=== PATIENT | male | born 1965 | race African-American/Black ===

== ENCOUNTER 2017-02-24 10:31 | Inpatient (IN) | payer OTHER ==
[2017-02-24 11:34] VITALS: BMI 29.5
--- NOTE | 2017-02-24 13:09 | HP ---
Admission ROS [facility] - [facility] Chief Complaint: alfred here for rehab from alcohol Allergies/Adverse Reactions: Allergies Allergy/AdvReac Type Severity Reaction Status Date / Time No Known Allergies Allergy Verified 02/24/17 13:03 History of Present Illness: this 51 years old male with alcohol dependence,seeking rehab,,last detox [facility] from 02/19/17 to 02/23/17 hypertension depression no significant perios of sobriety Exam Limitations: No Limitations - Ebola screening Have you traveled outside of the country in the last 21 days: No Have you had contact with anyone from an Ebola affected area: No Have you been sick,other than usual withdrawal symptoms: No - Review of Systems Constitutional: No Symptoms Reported EENT: reports: No Symptoms Reported Respiratory: reports: No Symptoms reported Cardiac: reports: No Symptoms Reported GI: reports: No Symptoms Reported : reports: No Symptoms Reported Musculoskeletal: reports: Neck Pain Integumentary: reports: No Symptoms Reported Neuro: reports: No Symptoms reported Endocrine: reports: No Symptoms Reported Hematology: reports: No Symptoms Reported Psychiatric: reports: Mood/Affect Appropiate, Orientated x3, Depressed Patient History - Patient Medical History Hx Anemia: No Hx Asthma: No Hx Chronic Obstructive Pulmonary Disease (COPD): No Hx Cancer: No Hx Cardiac Disorders: No Hx Congestive Heart Failure: No Hx Hypertension: Yes (on med) Hx Hypercholesterolemia: No Hx Pacemaker: No HX Cerebrovascular Accident: No Hx Seizures: No Hx Diabetes: No Hx Gastrointestinal Disorders: No Hx Liver Disease: No Hx Genitourinary Disorders: No Hx Sexually Transmitted Disorders: No Hx Renal Disease (ESRD): No Hx Thyroid Disease: No Hx Human Immunodeficiency Virus (HIV): No (last 2016 negative) Hx Hepatitis C: No Hx Depression: Yes (non compliant ) Hx Suicide Attempt: No Hx Schizophrenia: No Other Medical History: no suicidal,no homicidal - Patient Surgical History Past Surgical History: No Hx Neurologic Surgery: No Hx Cataract Extraction: No Hx Cardiac Surgery: No Hx Lung Surgery: No Hx Breast Surgery: No Hx Breast Biopsy: No Hx Abdominal Surgery: Yes Hx Appendectomy: No Hx Cholecystectomy: No Hx Genitourinary Surgery: No Hx Section: No Hx Orthopedic Surgery: Yes (right tight abd had a colonostomy bg for 2 years prior to closure ) Anesthesia Reaction: No - PPD History Previous Implant?: Yes Date: 03/01/14 PPD to be Administered?: Yes - Smoking Cessation Smoking history: Former smoker Have you smoked in the past 12 months: Yes Aproximately how many cigarettes per day: 3 Cigars Per Day: 0 Hx Chewing Tobacco Use: No Initiated information on smoking cessation: Yes 'Breaking Loose' booklet given: 02/24/17 - Substance & Tx. History Hx Alcohol Use: Yes Substance Use Type: Alcohol Hx Substance Use Treatment: Yes ([facility] 02/19/17 to 02/23/17) - Substances Abused Alcohol Route: Oral Frequency: Daily Amount used: 4 of 24 oz of liquor Age of first use: 15 Date of Last Use: 02/19/17 Family Disease History - Family Disease History Family Disease History: CA: Grandparent, Other: Father (alcohol,), Mother (alcohol,) Admission Physical Exam [facility] - Vital Signs Vital Signs: Vital Signs - 24 hr 02/24/17 11:32 Temperature 97.3 F L Pulse Rate 106 H Respiratory 18 Rate Blood Pressure 137/87 - Physical General Appearance: Yes: Within Normal Limits HEENTM: Yes: Within Normal Limits, Normal ENT Inspection, Pharynx Normal Respiratory: Yes: Lungs Clear, Normal Breath Sounds, No Respiratory Distress Neck: Yes: Within Normal Limits Breast: Yes: Within Normal Limits Cardiology: Yes: Within Normal Limits, Regular Rhythm, Regular Rate, S1, S2 Abdominal: Yes: Within Normal Limits, Normal Bowel Sounds, Non Tender, Flat, Soft, Surgical Scar Genitourinary: Yes: Within Normal Limits Back: Yes: Within Normal Limits Musculoskeletal: Yes: Within Normal Limits Extremities: Yes: Within Normal Limits Neurological: Yes: balancer scale II-XII NML intact, Fully Oriented, Alert, Motor Strength 5/5 Integumentary: Yes: Within Normal Limits Lymphatic: Yes: Within Normal Limits - Diagnostic (1) Alcohol dependence Current Visit: No Status: Acute (2) Hypertension Current Visit: Yes Status: Acute (3) Depression Current Visit: Yes Status: Acute Cleared for Admission [facility] - Detox or Rehab Claeared for Rehab Admission: Yes [facility] Breath Alcohol Content Breath Alcohol Content: 0 Urine Drug Screen - Results Drug Screen Negative: No Urine Drug Screen Results: BZO-Benzodiazepines
[2017-02-24] MEDS ORDERED: guaiFENesin/D-METHORPHAN HB 10 ML UNIT-DOSE CUPS PO PRN (13:23)
[2017-02-24] MEDS ORDERED: MENTHOL/PHENOL 1 EACH UD MM PRN (13:23)
[2017-02-24] MEDS ORDERED: LOPERAMIDE HCL 2 MG CAPSULE PO PRN (13:23)
[2017-02-24] MEDS ORDERED: P-EPHED 60MG/TRIPROLIDI 2.5MG TABLET PO PRN (13:23)
[2017-02-24] MEDS ORDERED: MAGNESIUM CITRATE 300 ML BOTTLE PO PRN (13:23)
[2017-02-24] MEDS: IBUPROFEN 400 MG TABLET (FP) PO PRN (14:12)
[2017-02-24] MEDS ORDERED: NICOTINE POLACRILEX 2 MG GUM BUC PRN (15:49)
[2017-02-24 18:02] LABS: URINE APPEARANCE TURBID; URINE BILIRUBIN NEGATIVE (NEGATIVE); URINE BLOOD NEGATIVE (NEGATIVE); URINE COLOR GREEN; URINE GLUCOSE (UA) NEGATIVE (NEGATIVE); URINE KETONE NEGATIVE (NEGATIVE); URINE LEUK ESTERASE NEGATIVE (NEGATIVE); URINE NITRITE NEGATIVE (NEGATIVE); URINE UROBILINOGEN NEGATIVE E.U./dl (0.2-1.0)
[2017-02-24 18:04] LABS: MEAN PLT VOLUME 7.9 fl (7.5-11.1)
[2017-02-24 18:06] LABS: MCH 28.5 pg (25.7-33.7); MCHC 32.7 g/dl (32.0-35.9); MEAN CELL VOLUME 86.9 fl (80-96); PLATELET COUNT 380 K/MM3 (134-434); WHITE BLOOD COUNT 7.4 K/mm3 (4.0-10.0)
[2017-02-24 18:15] LABS: ALBUMIN 4.2 g/dl (3.4-5.0); ANION GAP 9 (8-16); CALCIUM 9.7 mg/dL (8.5-10.1); CO2 29 mmol/L (21-32); CREATININE 1.2 mg/dL (0.7-1.3); GLUCOSE,RANDOM 86 mg/dL (74-106); SGOT/AST 62 U/L (15-37); SGPT/ALT 67 U/L (12-78)
[2017-02-24 18:18] LABS: ALK PHOS 101 U/L (45-117); BILIRUBIN,TOTAL 0.5 mg/dL (0.2-1.0); TOT PROT 8.3 g/dl (6.4-8.2)
[2017-02-24 18:48] LABS: URINE PROTEIN 1+ (NEGATIVE)
[2017-02-24 19:01] LABS: URINE MUCUS RARE; URINE RBC 3 /hpf (0-3); URINE WBC 71 /hpf (3-5); YEAST MANY
[2017-02-24] MEDS: ACETAMINOPHEN 325 MG TABLET (FP) PO PRN (19:16)
[2017-02-24] MEDS: NICOTINE 14 MG/24 HOURS TOPICAL PATCH TD SCH (20:47)
[2017-02-24] MEDS: SERTRALINE HCL 50 MG TABLET (FP) PO SCH (21:48)
[2017-02-24] MEDS: MIRTAZAPINE 15 MG TABLET (FP) PO SCH (21:49)
[2017-02-24] MEDS: THIAMINE HCL 100 MG TABLET (FP) PO SCH (21:49)
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
[2017-02-25] MEDS: LISINOPRIL 20 MG TABLET (FP) PO SCH (10:31)
[2017-02-25] MEDS: PRENATAL VITAMINS W/ FOLIC ACID TABLET (FP) PO SCH (10:31)
[2017-02-25] MEDS: SERTRALINE HCL 50 MG TABLET (FP) PO SCH (10:31)
[2017-02-25] MEDS: NICOTINE 14 MG/24 HOURS TOPICAL PATCH TD SCH (10:33)
[2017-02-25] MEDS ORDERED: SERTRALINE HCL 50 MG TABLET (FP) PO ONE (10:59)
[2017-02-25] MEDS: hydrOXYzine PAMOATE 50 MG CAPSULE (FP) PO PRN ×2 (11:01→22:14)
--- NOTE | 2017-02-25 11:05 | EKG ---
Test Reason : Blood Pressure : / mmHG Vent. Rate : 089 BPM Atrial Rate : 089 BPM P-R Int : 186 ms QRS Dur : 092 ms QT Int : 384 ms P-R-T Axes : 055 000 006 degrees QTc Int : 467 ms NORMAL SINUS RHYTHM POSSIBLE LEFT ATRIAL ENLARGEMENT LEFT VENTRICULAR HYPERTROPHY ABNORMAL ECG NO PREVIOUS ECGS AVAILABLE Confirmed by SUZI CHAVEZ MD ([id number]) on 02/25/2017 11:05:04 AM Referred By: Confirmed By:SUZI CHAVEZ MD
[2017-02-25] MEDS: THIAMINE HCL 100 MG TABLET (FP) PO SCH (21:27)
[2017-02-25] MEDS: IBUPROFEN 400 MG TABLET (FP) PO PRN (21:27)
[2017-02-25] MEDS: MIRTAZAPINE 15 MG TABLET (FP) PO SCH (21:27)
[2017-02-26] MEDS: PRENATAL VITAMINS W/ FOLIC ACID TABLET (FP) PO SCH (10:20)
[2017-02-26] MEDS: SERTRALINE HCL 50 MG TABLET (FP) PO SCH (10:20)
[2017-02-26] MEDS: hydrOXYzine PAMOATE 50 MG CAPSULE (FP) PO PRN ×2 (10:21→21:52)
[2017-02-26] MEDS: LISINOPRIL 20 MG TABLET (FP) PO SCH (10:21)
[2017-02-26] MEDS: NICOTINE 14 MG/24 HOURS TOPICAL PATCH TD SCH (10:23)
[2017-02-26] MEDS: CYCLOBENZAPRINE HCL 10 MG TABLET (FP) PO PRN (18:45)
[2017-02-26] MEDS: IBUPROFEN 600 MG TABLET (FP) PO PRN (18:46)
[2017-02-26] MEDS: MIRTAZAPINE 15 MG TABLET (FP) PO SCH (21:49)
[2017-02-26] MEDS: THIAMINE HCL 100 MG TABLET (FP) PO SCH (21:50)
[2017-02-27] MEDS: NICOTINE 14 MG/24 HOURS TOPICAL PATCH TD SCH (10:21)
[2017-02-27] MEDS: PRENATAL VITAMINS W/ FOLIC ACID TABLET (FP) PO SCH (10:21)
[2017-02-27] MEDS: LISINOPRIL 20 MG TABLET (FP) PO SCH (10:21)
[2017-02-27] MEDS: SERTRALINE HCL 50 MG TABLET (FP) PO SCH (10:21)
[2017-02-27] MEDS: CYCLOBENZAPRINE HCL 10 MG TABLET (FP) PO PRN ×2 (10:22→21:46)
[2017-02-27] MEDS: IBUPROFEN 600 MG TABLET (FP) PO PRN ×2 (10:22→21:45)
[2017-02-27] MEDS: THIAMINE HCL 100 MG TABLET (FP) PO SCH (21:46)
[2017-02-27] MEDS: MIRTAZAPINE 15 MG TABLET (FP) PO SCH (21:46)
[2017-02-28] MEDS: LISINOPRIL 20 MG TABLET (FP) PO SCH (10:14)
[2017-02-28] MEDS: PRENATAL VITAMINS W/ FOLIC ACID TABLET (FP) PO SCH (10:14)
[2017-02-28] MEDS: SERTRALINE HCL 50 MG TABLET (FP) PO SCH (10:14)
[2017-02-28] MEDS: NICOTINE 14 MG/24 HOURS TOPICAL PATCH TD SCH (10:14)
[2017-02-28] MEDS: IBUPROFEN 600 MG TABLET (FP) PO PRN ×2 (10:16→21:35)
[2017-02-28] MEDS: CYCLOBENZAPRINE HCL 10 MG TABLET (FP) PO PRN ×2 (10:16→21:35)
[2017-02-28] MEDS: MIRTAZAPINE 15 MG TABLET (FP) PO SCH (21:35)
[2017-02-28] MEDS: hydrOXYzine PAMOATE 50 MG CAPSULE (FP) PO PRN (21:35)
[2017-02-28] MEDS: THIAMINE HCL 100 MG TABLET (FP) PO SCH (21:35)
[2017-03-01] MEDS: NICOTINE 14 MG/24 HOURS TOPICAL PATCH TD SCH (10:27)
[2017-03-01] MEDS: PRENATAL VITAMINS W/ FOLIC ACID TABLET (FP) PO SCH (10:27)
[2017-03-01] MEDS: SERTRALINE HCL 50 MG TABLET (FP) PO SCH (10:28)
[2017-03-01] MEDS: LISINOPRIL 20 MG TABLET (FP) PO SCH (10:28)
[2017-03-01] MEDS: IBUPROFEN 600 MG TABLET (FP) PO PRN ×2 (10:29→21:49)
[2017-03-01] MEDS: CYCLOBENZAPRINE HCL 10 MG TABLET (FP) PO PRN (10:30)
[2017-03-01] MEDS: hydrOXYzine PAMOATE 50 MG CAPSULE (FP) PO PRN ×2 (16:11→21:50)
[2017-03-01] MEDS: MAG HYDROX/AL HYDROX/SIMETH 30 ML UNIT-DOSE CUP PO PRN (16:11)
[2017-03-01] MEDS: THIAMINE HCL 100 MG TABLET (FP) PO SCH (21:47)
[2017-03-01] MEDS: MIRTAZAPINE 15 MG TABLET (FP) PO SCH (21:47)
[2017-03-02] MEDS: PRENATAL VITAMINS W/ FOLIC ACID TABLET (FP) PO SCH (10:37)
[2017-03-02] MEDS: SERTRALINE HCL 50 MG TABLET (FP) PO SCH (10:37)
[2017-03-02] MEDS: hydrOXYzine PAMOATE 50 MG CAPSULE (FP) PO PRN ×2 (10:37→20:10)
[2017-03-02] MEDS: IBUPROFEN 600 MG TABLET (FP) PO PRN ×2 (10:38→21:33)
[2017-03-02] MEDS: NICOTINE 14 MG/24 HOURS TOPICAL PATCH TD SCH (10:39)
[2017-03-02] MEDS: LISINOPRIL 20 MG TABLET (FP) PO SCH (10:40)
[2017-03-02] MEDS: MAG HYDROX/AL HYDROX/SIMETH 30 ML UNIT-DOSE CUP PO PRN (20:11)
[2017-03-02] MEDS: MIRTAZAPINE 15 MG TABLET (FP) PO SCH (21:32)
[2017-03-02] MEDS: CYCLOBENZAPRINE HCL 10 MG TABLET (FP) PO PRN (21:32)
[2017-03-02] MEDS: THIAMINE HCL 100 MG TABLET (FP) PO SCH (21:34)
--- NOTE | 2017-03-03 09:04 | PN ---
[facility] Progress Note (SOAP) Subjective: neck pain x 1 week worse with left sided movements Objective: 03/03/17 08:59 Vital Signs Temperature 97.9 F 03/03/17 06:50 Pulse Rate 83 03/03/17 06:50 Respiratory Rate 18 03/03/17 06:50 Blood Pressure 136/87 03/03/17 06:50 O2 Sat by Pulse Oximetry (%) Laboratory Tests 02/24/17 02/24/17 02/24/17 13:00 13:00 13:00 WBC 7.4 D RBC 4.91 Hgb 14.0 Hct 42.7 MCV 86.9 MCHC 32.7 RDW 15.0 Plt Count 380 D MPV 7.9 Sodium 136 Potassium 4.3 Chloride 98 Carbon Dioxide 29 Anion Gap 9 BUN 16 D Creatinine 1.2 Creat Clearance w eGFR > 60 Random Glucose 86 Calcium 9.7 Total Bilirubin 0.5 AST 62 H D ALT 67 D Alkaline Phosphatase 101 Total Protein 8.3 H Albumin 4.2 Urine Color Urine Appearance Urine pH Ur Specific Hart Urine Protein Urine Glucose (UA) Urine Ketones Urine Blood Urine Nitrite Urine Bilirubin Urine Urobilinogen Ur Leukocyte Esterase Urine RBC Urine WBC Urine Mucus Urine Yeast RPR Titer Nonreactive 02/24/17 15:00 WBC RBC Hgb Hct MCV MCHC RDW Plt Count MPV Sodium Potassium Chloride Carbon Dioxide Anion Gap BUN Creatinine Creat Clearance w eGFR Random Glucose Calcium Total Bilirubin AST ALT Alkaline Phosphatase Total Protein Albumin Urine Color Green Urine Appearance Turbid Urine pH 5.0 Ur Specific Hart 1.025 Urine Protein 1+ H Urine Glucose (UA) Negative Urine Ketones Negative Urine Blood Negative Urine Nitrite Negative Urine Bilirubin Negative Urine Urobilinogen Negative Ur Leukocyte Esterase Negative Urine RBC 3 Urine WBC 71 Urine Mucus Rare Urine Yeast Many RPR Titer pt aox3 in nad ambulatng neck soft +dolor on left sided movemnts Assessment: 03/03/17 09:02 neck pain -likely musculosketetal Plan: motri 600mg tid flexeril 10mg tid x ray c-spine analgesic balm
[2017-03-03] MEDS: METHYL SALICYLATE/MENTHOL OINT 30 GM TUBE TP SCH ×2 (10:21→21:43)
[2017-03-03] MEDS: LISINOPRIL 20 MG TABLET (FP) PO SCH (10:21)
[2017-03-03] MEDS: PRENATAL VITAMINS W/ FOLIC ACID TABLET (FP) PO SCH (10:21)
[2017-03-03] MEDS: SERTRALINE HCL 50 MG TABLET (FP) PO SCH (10:22)
[2017-03-03] MEDS: NICOTINE 14 MG/24 HOURS TOPICAL PATCH TD SCH (10:22)
[2017-03-03] MEDS: IBUPROFEN 600 MG TABLET (FP) PO PRN ×2 (10:23→21:44)
[2017-03-03] MEDS: CYCLOBENZAPRINE HCL 10 MG TABLET (FP) PO PRN ×2 (10:23→21:45)
[2017-03-03] MEDS: MAG HYDROX/AL HYDROX/SIMETH 30 ML UNIT-DOSE CUP PO PRN (20:25)
[2017-03-03] MEDS: hydrOXYzine PAMOATE 50 MG CAPSULE (FP) PO PRN (20:25)
[2017-03-03] MEDS: THIAMINE HCL 100 MG TABLET (FP) PO SCH (21:43)
[2017-03-03] MEDS: MIRTAZAPINE 15 MG TABLET (FP) PO SCH (21:43)
[2017-03-04] MEDS ORDERED: COLLOIDAL OATMEAL 1 BAR EACH TP PRN (09:45)
[2017-03-04] MEDS: LISINOPRIL 20 MG TABLET (FP) PO SCH (09:47)
[2017-03-04] MEDS: PRENATAL VITAMINS W/ FOLIC ACID TABLET (FP) PO SCH (09:47)
[2017-03-04] MEDS: SERTRALINE HCL 50 MG TABLET (FP) PO SCH (09:47)
[2017-03-04] MEDS: CYCLOBENZAPRINE HCL 10 MG TABLET (FP) PO PRN ×2 (09:48→21:32)
[2017-03-04] MEDS: IBUPROFEN 600 MG TABLET (FP) PO PRN ×2 (09:48→21:32)
[2017-03-04 09:53] LABS: URINE APPEARANCE CLEAR; URINE BILIRUBIN NEGATIVE (NEGATIVE); URINE BLOOD NEGATIVE (NEGATIVE); URINE COLOR LTYELLOW; URINE GLUCOSE (UA) NEGATIVE (NEGATIVE); URINE KETONE NEGATIVE (NEGATIVE); URINE LEUK ESTERASE NEGATIVE (NEGATIVE); URINE NITRITE NEGATIVE (NEGATIVE); URINE PROTEIN NEGATIVE (NEGATIVE); URINE UROBILINOGEN NEGATIVE E.U./dl (0.2-1.0)
[2017-03-04] MEDS ORDERED: BACITRACIN 15 GM TUBE TOPICAL OINTMENT TP SCH (10:00)
[2017-03-04] MEDS: METHYL SALICYLATE/MENTHOL OINT 30 GM TUBE TP SCH ×3 (10:05→22:32)
[2017-03-04] MEDS: NICOTINE 14 MG/24 HOURS TOPICAL PATCH TD SCH (10:05)
[2017-03-04] MEDS: MAG HYDROX/AL HYDROX/SIMETH 30 ML UNIT-DOSE CUP PO PRN (18:16)
[2017-03-04] MEDS: MIRTAZAPINE 15 MG TABLET (FP) PO SCH (21:32)
[2017-03-04] MEDS: THIAMINE HCL 100 MG TABLET (FP) PO SCH (21:32)
[2017-03-04] MEDS: hydrOXYzine PAMOATE 50 MG CAPSULE (FP) PO PRN (21:32)
[2017-03-05] MEDS: SERTRALINE HCL 50 MG TABLET (FP) PO SCH (10:05)
[2017-03-05] MEDS: LISINOPRIL 20 MG TABLET (FP) PO SCH (10:05)
[2017-03-05] MEDS: hydrOXYzine PAMOATE 50 MG CAPSULE (FP) PO PRN ×2 (10:06→21:07)
[2017-03-05] MEDS: IBUPROFEN 600 MG TABLET (FP) PO PRN ×2 (10:06→21:07)
[2017-03-05] MEDS: NICOTINE 14 MG/24 HOURS TOPICAL PATCH TD SCH (10:08)
[2017-03-05] MEDS: METHYL SALICYLATE/MENTHOL OINT 30 GM TUBE TP SCH ×2 (10:08→21:05)
[2017-03-05] MEDS: PRENATAL VITAMINS W/ FOLIC ACID TABLET (FP) PO SCH (10:09)
[2017-03-05] MEDS: MAG HYDROX/AL HYDROX/SIMETH 30 ML UNIT-DOSE CUP PO PRN (15:59)
[2017-03-05] MEDS: MIRTAZAPINE 15 MG TABLET (FP) PO SCH (21:06)
[2017-03-05] MEDS: THIAMINE HCL 100 MG TABLET (FP) PO SCH (21:06)
[2017-03-05] MEDS: CYCLOBENZAPRINE HCL 10 MG TABLET (FP) PO PRN (21:09)
[2017-03-06] MEDS: NICOTINE 14 MG/24 HOURS TOPICAL PATCH TD SCH (10:21)
[2017-03-06] MEDS: PRENATAL VITAMINS W/ FOLIC ACID TABLET (FP) PO SCH (10:21)
[2017-03-06] MEDS: METHYL SALICYLATE/MENTHOL OINT 30 GM TUBE TP SCH ×2 (10:21→22:56)
[2017-03-06] MEDS: SERTRALINE HCL 50 MG TABLET (FP) PO SCH (10:21)
[2017-03-06] MEDS: LISINOPRIL 20 MG TABLET (FP) PO SCH (10:21)
[2017-03-06] MEDS: IBUPROFEN 600 MG TABLET (FP) PO PRN ×2 (10:23→21:39)
[2017-03-06] MEDS: CYCLOBENZAPRINE HCL 10 MG TABLET (FP) PO PRN ×2 (10:23→21:39)
[2017-03-06] MEDS: THIAMINE HCL 100 MG TABLET (FP) PO SCH (21:38)
[2017-03-06] MEDS: hydrOXYzine PAMOATE 50 MG CAPSULE (FP) PO PRN (21:38)
[2017-03-06] MEDS: MIRTAZAPINE 15 MG TABLET (FP) PO SCH (21:39)
[2017-03-07] MEDS: SERTRALINE HCL 50 MG TABLET (FP) PO SCH (10:06)
[2017-03-07] MEDS: LISINOPRIL 20 MG TABLET (FP) PO SCH (10:06)
[2017-03-07] MEDS: PRENATAL VITAMINS W/ FOLIC ACID TABLET (FP) PO SCH (10:06)
[2017-03-07] MEDS: hydrOXYzine PAMOATE 50 MG CAPSULE (FP) PO PRN (10:07)
[2017-03-07] MEDS: IBUPROFEN 600 MG TABLET (FP) PO PRN ×2 (10:07→21:16)
[2017-03-07] MEDS: METHYL SALICYLATE/MENTHOL OINT 30 GM TUBE TP SCH ×2 (10:08→21:14)
[2017-03-07] MEDS: NICOTINE 14 MG/24 HOURS TOPICAL PATCH TD SCH (10:08)
[2017-03-07] MEDS: MIRTAZAPINE 15 MG TABLET (FP) PO SCH (21:15)
[2017-03-07] MEDS: THIAMINE HCL 100 MG TABLET (FP) PO SCH (21:15)
[2017-03-08] MEDS: PRENATAL VITAMINS W/ FOLIC ACID TABLET (FP) PO SCH (10:12)
[2017-03-08] MEDS: SERTRALINE HCL 50 MG TABLET (FP) PO SCH (10:12)
[2017-03-08] MEDS: LISINOPRIL 20 MG TABLET (FP) PO SCH (10:12)
[2017-03-08] MEDS: NICOTINE 14 MG/24 HOURS TOPICAL PATCH TD SCH (10:13)
[2017-03-08] MEDS: CYCLOBENZAPRINE HCL 10 MG TABLET (FP) PO PRN ×2 (10:13→21:30)
[2017-03-08] MEDS: METHYL SALICYLATE/MENTHOL OINT 30 GM TUBE TP SCH ×2 (10:13→21:28)
[2017-03-08] MEDS: IBUPROFEN 600 MG TABLET (FP) PO PRN ×2 (10:14→21:30)
[2017-03-08] MEDS: MAG HYDROX/AL HYDROX/SIMETH 30 ML UNIT-DOSE CUP PO PRN (19:13)
[2017-03-08] MEDS: THIAMINE HCL 100 MG TABLET (FP) PO SCH (21:28)
[2017-03-08] MEDS: MIRTAZAPINE 15 MG TABLET (FP) PO SCH (21:28)
[2017-03-08] MEDS: hydrOXYzine PAMOATE 50 MG CAPSULE (FP) PO PRN (21:30)
--- NOTE | 2017-03-09 09:05 | PN ---
S Progress Note Note: patient has history of gerd on omeprazol at home,will give protonix 40 mgs po daily
[2017-03-09] MEDS: METHYL SALICYLATE/MENTHOL OINT 30 GM TUBE TP SCH ×2 (09:51→21:32)
[2017-03-09] MEDS: LISINOPRIL 20 MG TABLET (FP) PO SCH (09:52)
[2017-03-09] MEDS: SERTRALINE HCL 50 MG TABLET (FP) PO SCH (09:52)
[2017-03-09] MEDS: PANTOPRAZOLE 40 MG TABLET (FP) PO SCH (09:52)
[2017-03-09] MEDS: PRENATAL VITAMINS W/ FOLIC ACID TABLET (FP) PO SCH (09:52)
[2017-03-09] MEDS: hydrOXYzine PAMOATE 50 MG CAPSULE (FP) PO PRN ×2 (09:54→21:31)
[2017-03-09] MEDS: IBUPROFEN 600 MG TABLET (FP) PO PRN ×2 (09:54→21:30)
[2017-03-09] MEDS: NICOTINE 14 MG/24 HOURS TOPICAL PATCH TD SCH (09:55)
[2017-03-09] MEDS: THIAMINE HCL 100 MG TABLET (FP) PO SCH (21:30)
[2017-03-09] MEDS: MIRTAZAPINE 15 MG TABLET (FP) PO SCH (21:30)
[2017-03-09] MEDS: CYCLOBENZAPRINE HCL 10 MG TABLET (FP) PO PRN (21:30)
[2017-03-10] MEDS: NICOTINE 14 MG/24 HOURS TOPICAL PATCH TD SCH (10:11)
[2017-03-10] MEDS: PRENATAL VITAMINS W/ FOLIC ACID TABLET (FP) PO SCH (10:11)
[2017-03-10] MEDS: METHYL SALICYLATE/MENTHOL OINT 30 GM TUBE TP SCH ×2 (10:11→22:56)
[2017-03-10] MEDS: PANTOPRAZOLE 40 MG TABLET (FP) PO SCH (10:12)
[2017-03-10] MEDS: LISINOPRIL 20 MG TABLET (FP) PO SCH (10:12)
[2017-03-10] MEDS: SERTRALINE HCL 50 MG TABLET (FP) PO SCH (10:12)
[2017-03-10] MEDS: hydrOXYzine PAMOATE 50 MG CAPSULE (FP) PO PRN ×2 (10:13→21:33)
[2017-03-10] MEDS: IBUPROFEN 600 MG TABLET (FP) PO PRN ×2 (10:13→21:33)
[2017-03-10] MEDS: MIRTAZAPINE 15 MG TABLET (FP) PO SCH (21:31)
[2017-03-10] MEDS: THIAMINE HCL 100 MG TABLET (FP) PO SCH (21:31)
[2017-03-10] MEDS: CYCLOBENZAPRINE HCL 10 MG TABLET (FP) PO PRN (21:33)
[2017-03-11] MEDS: SERTRALINE HCL 50 MG TABLET (FP) PO SCH (09:52)
[2017-03-11] MEDS: PANTOPRAZOLE 40 MG TABLET (FP) PO SCH (09:53)
[2017-03-11] MEDS: PRENATAL VITAMINS W/ FOLIC ACID TABLET (FP) PO SCH (09:53)
[2017-03-11] MEDS: hydrOXYzine PAMOATE 50 MG CAPSULE (FP) PO PRN ×2 (09:54→21:21)
[2017-03-11] MEDS: IBUPROFEN 600 MG TABLET (FP) PO PRN ×2 (09:54→21:21)
[2017-03-11] MEDS: CYCLOBENZAPRINE HCL 10 MG TABLET (FP) PO PRN ×2 (09:54→21:21)
[2017-03-11] MEDS: METHYL SALICYLATE/MENTHOL OINT 30 GM TUBE TP SCH ×2 (09:56→22:19)
[2017-03-11] MEDS: LISINOPRIL 20 MG TABLET (FP) PO SCH (09:57)
[2017-03-11] MEDS: NICOTINE 14 MG/24 HOURS TOPICAL PATCH TD SCH (09:57)
[2017-03-11] MEDS: THIAMINE HCL 100 MG TABLET (FP) PO SCH (21:20)
[2017-03-11] MEDS: MIRTAZAPINE 15 MG TABLET (FP) PO SCH (21:20)
[2017-03-12] MEDS: PRENATAL VITAMINS W/ FOLIC ACID TABLET (FP) PO SCH (09:56)
[2017-03-12] MEDS: SERTRALINE HCL 50 MG TABLET (FP) PO SCH (09:56)
[2017-03-12] MEDS: LISINOPRIL 20 MG TABLET (FP) PO SCH (09:56)
[2017-03-12] MEDS: PANTOPRAZOLE 40 MG TABLET (FP) PO SCH (09:57)
[2017-03-12] MEDS: CYCLOBENZAPRINE HCL 10 MG TABLET (FP) PO PRN ×2 (09:58→21:17)
[2017-03-12] MEDS: hydrOXYzine PAMOATE 50 MG CAPSULE (FP) PO PRN ×2 (09:58→21:18)
[2017-03-12] MEDS: IBUPROFEN 600 MG TABLET (FP) PO PRN ×2 (09:58→21:17)
[2017-03-12] MEDS: METHYL SALICYLATE/MENTHOL OINT 30 GM TUBE TP SCH ×2 (10:03→21:16)
[2017-03-12] MEDS: NICOTINE 14 MG/24 HOURS TOPICAL PATCH TD SCH (10:04)
[2017-03-12] MEDS: MIRTAZAPINE 15 MG TABLET (FP) PO SCH (21:16)
[2017-03-12] MEDS: THIAMINE HCL 100 MG TABLET (FP) PO SCH (21:16)
[2017-03-13] MEDS: SERTRALINE HCL 50 MG TABLET (FP) PO SCH (10:01)
[2017-03-13] MEDS: NICOTINE 14 MG/24 HOURS TOPICAL PATCH TD SCH (10:01)
[2017-03-13] MEDS: LISINOPRIL 20 MG TABLET (FP) PO SCH (10:01)
[2017-03-13] MEDS: METHYL SALICYLATE/MENTHOL OINT 30 GM TUBE TP SCH ×2 (10:01→21:12)
[2017-03-13] MEDS: PRENATAL VITAMINS W/ FOLIC ACID TABLET (FP) PO SCH (10:01)
[2017-03-13] MEDS: CYCLOBENZAPRINE HCL 10 MG TABLET (FP) PO PRN ×2 (10:04→21:13)
[2017-03-13] MEDS: PANTOPRAZOLE 40 MG TABLET (FP) PO SCH (10:04)
[2017-03-13] MEDS: IBUPROFEN 600 MG TABLET (FP) PO PRN ×2 (10:04→21:12)
[2017-03-13] MEDS: MIRTAZAPINE 15 MG TABLET (FP) PO SCH (21:13)
[2017-03-13] MEDS: THIAMINE HCL 100 MG TABLET (FP) PO SCH (21:13)
[2017-03-13] MEDS: hydrOXYzine PAMOATE 50 MG CAPSULE (FP) PO PRN (21:13)
[2017-03-14] MEDS: PRENATAL VITAMINS W/ FOLIC ACID TABLET (FP) PO SCH (09:16)
[2017-03-14] MEDS: SERTRALINE HCL 50 MG TABLET (FP) PO SCH (09:16)
[2017-03-14] MEDS: PANTOPRAZOLE 40 MG TABLET (FP) PO SCH (09:17)
[2017-03-14] MEDS: CYCLOBENZAPRINE HCL 10 MG TABLET (FP) PO PRN ×2 (09:18→21:28)
[2017-03-14] MEDS: hydrOXYzine PAMOATE 50 MG CAPSULE (FP) PO PRN (09:18)
[2017-03-14] MEDS: LISINOPRIL 20 MG TABLET (FP) PO SCH (09:21)
[2017-03-14] MEDS: METHYL SALICYLATE/MENTHOL OINT 30 GM TUBE TP SCH ×2 (09:22→21:24)
[2017-03-14] MEDS: NICOTINE 14 MG/24 HOURS TOPICAL PATCH TD SCH (09:22)
[2017-03-14] MEDS: MIRTAZAPINE 15 MG TABLET (FP) PO SCH (21:24)
[2017-03-14] MEDS: THIAMINE HCL 100 MG TABLET (FP) PO SCH (21:24)
[2017-03-14] MEDS: diphenhydrAMINE HCL 50 MG CAPSULE PO PRN (21:25)
[2017-03-14] MEDS: IBUPROFEN 600 MG TABLET (FP) PO PRN (21:26)
[2017-03-15] MEDS: PRENATAL VITAMINS W/ FOLIC ACID TABLET (FP) PO SCH (09:51)
[2017-03-15] MEDS: SERTRALINE HCL 50 MG TABLET (FP) PO SCH (09:51)
[2017-03-15] MEDS: PANTOPRAZOLE 40 MG TABLET (FP) PO SCH (09:52)
[2017-03-15] MEDS: LISINOPRIL 20 MG TABLET (FP) PO SCH (09:52)
[2017-03-15] MEDS: METHYL SALICYLATE/MENTHOL OINT 30 GM TUBE TP SCH ×2 (09:53→21:08)
[2017-03-15] MEDS: ACETAMINOPHEN 325 MG TABLET (FP) PO PRN (09:54)
[2017-03-15] MEDS: CYCLOBENZAPRINE HCL 10 MG TABLET (FP) PO PRN ×2 (09:54→21:07)
[2017-03-15] MEDS: hydrOXYzine PAMOATE 50 MG CAPSULE (FP) PO PRN (09:54)
[2017-03-15] MEDS: NICOTINE 14 MG/24 HOURS TOPICAL PATCH TD SCH (09:55)
[2017-03-15] MEDS: diphenhydrAMINE HCL 50 MG CAPSULE PO PRN (21:06)
[2017-03-15] MEDS: THIAMINE HCL 100 MG TABLET (FP) PO SCH (21:06)
[2017-03-15] MEDS: IBUPROFEN 600 MG TABLET (FP) PO PRN (21:07)
[2017-03-15] MEDS: MIRTAZAPINE 15 MG TABLET (FP) PO SCH (21:08)
[2017-03-16] MEDS: LISINOPRIL 20 MG TABLET (FP) PO SCH (09:57)
[2017-03-16] MEDS: PRENATAL VITAMINS W/ FOLIC ACID TABLET (FP) PO SCH (09:57)
[2017-03-16] MEDS: SERTRALINE HCL 50 MG TABLET (FP) PO SCH (09:57)
[2017-03-16] MEDS: PANTOPRAZOLE 40 MG TABLET (FP) PO SCH (09:58)
[2017-03-16] MEDS: IBUPROFEN 600 MG TABLET (FP) PO PRN ×2 (09:59→21:20)
[2017-03-16] MEDS: CYCLOBENZAPRINE HCL 10 MG TABLET (FP) PO PRN ×2 (09:59→21:21)
[2017-03-16] MEDS: NICOTINE 14 MG/24 HOURS TOPICAL PATCH TD SCH (10:00)
[2017-03-16] MEDS: METHYL SALICYLATE/MENTHOL OINT 30 GM TUBE TP SCH ×2 (10:04→21:18)
[2017-03-16] MEDS: MIRTAZAPINE 15 MG TABLET (FP) PO SCH (21:18)
[2017-03-16] MEDS: THIAMINE HCL 100 MG TABLET (FP) PO SCH (21:21)
[2017-03-17] MEDS: PRENATAL VITAMINS W/ FOLIC ACID TABLET (FP) PO SCH (09:40)
[2017-03-17] MEDS: LISINOPRIL 20 MG TABLET (FP) PO SCH (09:41)
[2017-03-17] MEDS: IBUPROFEN 600 MG TABLET (FP) PO PRN ×2 (09:41→21:11)
[2017-03-17] MEDS: CYCLOBENZAPRINE HCL 10 MG TABLET (FP) PO PRN ×2 (09:41→21:11)
[2017-03-17] MEDS: SERTRALINE HCL 50 MG TABLET (FP) PO SCH (09:41)
[2017-03-17] MEDS: PANTOPRAZOLE 40 MG TABLET (FP) PO SCH (09:41)
[2017-03-17] MEDS: hydrOXYzine PAMOATE 50 MG CAPSULE (FP) PO PRN ×2 (09:50→21:11)
[2017-03-17] MEDS: METHYL SALICYLATE/MENTHOL OINT 30 GM TUBE TP SCH ×2 (09:53→21:10)
[2017-03-17] MEDS: NICOTINE 14 MG/24 HOURS TOPICAL PATCH TD SCH (09:55)
[2017-03-17] MEDS: MIRTAZAPINE 15 MG TABLET (FP) PO SCH (21:10)
[2017-03-17] MEDS: THIAMINE HCL 100 MG TABLET (FP) PO SCH (21:10)
[2017-03-18] MEDS: PANTOPRAZOLE 40 MG TABLET (FP) PO SCH (09:46)
[2017-03-18] MEDS: SERTRALINE HCL 50 MG TABLET (FP) PO SCH (09:46)
[2017-03-18] MEDS: PRENATAL VITAMINS W/ FOLIC ACID TABLET (FP) PO SCH (09:46)
[2017-03-18] MEDS: CYCLOBENZAPRINE HCL 10 MG TABLET (FP) PO PRN ×2 (09:46→21:10)
[2017-03-18] MEDS: IBUPROFEN 600 MG TABLET (FP) PO PRN ×2 (09:46→21:10)
[2017-03-18] MEDS: LISINOPRIL 20 MG TABLET (FP) PO SCH (09:46)
[2017-03-18] MEDS: NICOTINE 14 MG/24 HOURS TOPICAL PATCH TD SCH (09:49)
[2017-03-18] MEDS: METHYL SALICYLATE/MENTHOL OINT 30 GM TUBE TP SCH ×2 (09:49→21:09)
[2017-03-18] MEDS: THIAMINE HCL 100 MG TABLET (FP) PO SCH (21:09)
[2017-03-18] MEDS: MIRTAZAPINE 15 MG TABLET (FP) PO SCH (21:09)
[2017-03-18] MEDS: hydrOXYzine PAMOATE 50 MG CAPSULE (FP) PO PRN (21:10)
[2017-03-19] MEDS: METHYL SALICYLATE/MENTHOL OINT 30 GM TUBE TP SCH ×2 (09:26→21:14)
[2017-03-19] MEDS: PRENATAL VITAMINS W/ FOLIC ACID TABLET (FP) PO SCH (09:27)
[2017-03-19] MEDS: SERTRALINE HCL 50 MG TABLET (FP) PO SCH (09:27)
[2017-03-19] MEDS: LISINOPRIL 20 MG TABLET (FP) PO SCH (09:27)
[2017-03-19] MEDS: NICOTINE 14 MG/24 HOURS TOPICAL PATCH TD SCH (09:27)
[2017-03-19] MEDS: PANTOPRAZOLE 40 MG TABLET (FP) PO SCH (09:27)
[2017-03-19] MEDS: hydrOXYzine PAMOATE 50 MG CAPSULE (FP) PO PRN (09:28)
[2017-03-19] MEDS: MIRTAZAPINE 15 MG TABLET (FP) PO SCH (21:11)
[2017-03-19] MEDS: CYCLOBENZAPRINE HCL 10 MG TABLET (FP) PO PRN (21:12)
[2017-03-19] MEDS: IBUPROFEN 600 MG TABLET (FP) PO PRN (21:12)
[2017-03-19] MEDS: diphenhydrAMINE HCL 50 MG CAPSULE PO PRN (21:12)
[2017-03-19] MEDS: THIAMINE HCL 100 MG TABLET (FP) PO SCH (21:13)
[2017-03-20] MEDS: LISINOPRIL 20 MG TABLET (FP) PO SCH (09:41)
[2017-03-20] MEDS: IBUPROFEN 600 MG TABLET (FP) PO PRN ×2 (09:41→21:27)
[2017-03-20] MEDS: CYCLOBENZAPRINE HCL 10 MG TABLET (FP) PO PRN ×2 (09:41→21:23)
[2017-03-20] MEDS: hydrOXYzine PAMOATE 50 MG CAPSULE (FP) PO PRN (09:43)
[2017-03-20] MEDS: NICOTINE 14 MG/24 HOURS TOPICAL PATCH TD SCH (09:44)
[2017-03-20] MEDS: PRENATAL VITAMINS W/ FOLIC ACID TABLET (FP) PO SCH (09:44)
[2017-03-20] MEDS: METHYL SALICYLATE/MENTHOL OINT 30 GM TUBE TP SCH ×2 (09:44→21:29)
[2017-03-20] MEDS: SERTRALINE HCL 50 MG TABLET (FP) PO SCH ×2 (09:45→21:23)
[2017-03-20] MEDS: PANTOPRAZOLE 40 MG TABLET (FP) PO SCH (09:45)
[2017-03-20] MEDS: THIAMINE HCL 100 MG TABLET (FP) PO SCH (21:23)
[2017-03-20] MEDS: MIRTAZAPINE 15 MG TABLET (FP) PO SCH (21:23)
[2017-03-20] MEDS: TOLNAFTATE 1% CREAM 15 GM TUBE TP SCH (21:30)
[2017-03-21] MEDS: LISINOPRIL 20 MG TABLET (FP) PO SCH (09:35)
[2017-03-21] MEDS: PRENATAL VITAMINS W/ FOLIC ACID TABLET (FP) PO SCH (09:35)
[2017-03-21] MEDS: PANTOPRAZOLE 40 MG TABLET (FP) PO SCH (09:35)
[2017-03-21] MEDS: TOLNAFTATE 1% CREAM 15 GM TUBE TP SCH ×2 (09:36→21:08)
[2017-03-21] MEDS: METHYL SALICYLATE/MENTHOL OINT 30 GM TUBE TP SCH ×2 (09:36→21:07)
[2017-03-21] MEDS: NICOTINE 14 MG/24 HOURS TOPICAL PATCH TD SCH (09:36)
[2017-03-21] MEDS: ACETAMINOPHEN 325 MG TABLET (FP) PO PRN (09:37)
[2017-03-21] MEDS: hydrOXYzine PAMOATE 50 MG CAPSULE (FP) PO PRN ×2 (09:37→19:58)
[2017-03-21] MEDS: MIRTAZAPINE 15 MG TABLET (FP) PO SCH (21:07)
[2017-03-21] MEDS: THIAMINE HCL 100 MG TABLET (FP) PO SCH (21:08)
[2017-03-21] MEDS: CYCLOBENZAPRINE HCL 10 MG TABLET (FP) PO PRN (21:08)
[2017-03-21] MEDS: SERTRALINE HCL 50 MG TABLET (FP) PO SCH (21:09)
[2017-03-22] MEDS: METHYL SALICYLATE/MENTHOL OINT 30 GM TUBE TP SCH ×2 (09:55→21:24)
[2017-03-22] MEDS: LISINOPRIL 20 MG TABLET (FP) PO SCH (09:55)
[2017-03-22] MEDS: PANTOPRAZOLE 40 MG TABLET (FP) PO SCH (09:55)
[2017-03-22] MEDS: NICOTINE 14 MG/24 HOURS TOPICAL PATCH TD SCH (09:55)
[2017-03-22] MEDS: PRENATAL VITAMINS W/ FOLIC ACID TABLET (FP) PO SCH (09:55)
[2017-03-22] MEDS: TOLNAFTATE 1% CREAM 15 GM TUBE TP SCH ×2 (09:56→21:25)
[2017-03-22] MEDS: CYCLOBENZAPRINE HCL 10 MG TABLET (FP) PO PRN ×2 (09:57→21:22)
[2017-03-22] MEDS: MAGNESIUM HYDROX 2400MG/30ML ORAL SUSPENSION 30 ML CUP PO PRN (09:57)
[2017-03-22] MEDS: hydrOXYzine PAMOATE 50 MG CAPSULE (FP) PO PRN (09:57)
[2017-03-22] MEDS: IBUPROFEN 600 MG TABLET (FP) PO PRN (09:58)
[2017-03-22] MEDS: MIRTAZAPINE 15 MG TABLET (FP) PO SCH (21:20)
[2017-03-22] MEDS: THIAMINE HCL 100 MG TABLET (FP) PO SCH (21:20)
[2017-03-22] MEDS: SERTRALINE HCL 50 MG TABLET (FP) PO SCH (21:20)
[2017-03-22] MEDS: ACETAMINOPHEN 325 MG TABLET (FP) PO PRN (21:22)
[2017-03-23] MEDS: hydrOXYzine PAMOATE 50 MG CAPSULE (FP) PO PRN ×2 (06:37→20:39)
[2017-03-23] MEDS: MAGNESIUM HYDROX 2400MG/30ML ORAL SUSPENSION 30 ML CUP PO PRN (06:37)
--- NOTE | 2017-03-23 07:41 | PN ---
Psychiatric Progress Note Vital Signs: Vital Signs Period Temp Pulse Resp BP Sys/Wood Pulse Ox Last 24 Hr 97.8 F 92-109 18-20 125-131/76-79 Date of Session: 03/23/17 Chief Complaint:: Discharge Note HPI: Patient addressing Alcohol Dependence comorbid with Nicotine Dependence and Anxiety Disorder ROS: HTN, GERD were medically addressed Current Medications: Active Medications Generic Name Dose Route Start Last Admin Trade Name Freq PRN Reason Stop Dose Admin Acetaminophen 650 mg 02/24/17 13:23 03/22/17 21:22 Tylenol - PO 650 mg Q4H PRN Administration PAIN Al Hydroxide/Mg Hydroxide 30 ml 02/24/17 13:23 03/08/17 19:13 Mylanta Oral Suspension - PO 30 ml Q6H PRN Administration DYSPEPSIA Colloidal Oatmeal 1 applic 03/04/17 09:45 03/04/17 10:05 Aveeno Soap - TP 1 bar DAILY PRN Administration HYGEINE Cyclobenzaprine HCl 10 mg 02/26/17 15:52 03/22/17 21:22 Flexeril - PO 10 mg TID PRN Administration MUSCLE SPASMS Diphenhydramine HCl 50 mg 02/24/17 13:23 03/19/17 21:12 Benadryl - PO 50 mg HSMR1 PRN Administration INSOMNIA Eucalyptus/Menthol/Phenol/Sorbitol 1 each 02/24/17 13:23 Cepastat Lozenge - MM Q4H PRN SORE THROAT Guaifenesin 10 ml 02/24/17 13:23 Robitussin Dm - PO Q6H PRN COUGH Hydroxyzine Pamoate 50 mg 02/24/17 13:23 03/23/17 06:37 Vistaril - PO 50 mg Q4H PRN Administration AGITATION Ibuprofen 600 mg 02/26/17 15:51 03/22/17 09:58 Motrin - PO 600 mg Q6H PRN Administration PAIN Lisinopril 20 mg 02/25/17 10:00 03/22/17 09:55 Prinivil PO 20 mg DAILY JOSE F Administration Loperamide HCl 4 mg 02/24/17 13:23 Imodium - PO Q6H PRN DIARRHEA Magnesium Citrate 300 ml 02/24/17 13:23 Citroma - PO Q48H PRN CONSTIPATION Magnesium Hydroxide 30 ml 02/24/17 13:23 03/23/17 06:37 Milk Of Magnesia - PO 30 ml DAILY PRN Administration CONSTIPATION Methyl Salicylate 1 applic 03/03/17 10:00 03/22/17 21:24 Jimenez-Huffman - TP Not Given BID JOSE F Mirtazapine 15 mg 02/24/17 22:00 03/22/17 21:20 Remeron - PO 15 mg HS JOSE F Administration Nicotine 14 mg 02/24/17 16:00 03/22/17 09:55 Nicoderm Patch - TD Not Given DAILY JOSE F Nicotine Polacrilex 2 mg 02/24/17 15:49 02/25/17 10:33 Nicorette Gum - BUC 2 mg Q2H PRN Administration NICOTINE REPLACEMENT RX Pantoprazole Sodium 40 mg 03/09/17 10:00 03/22/17 09:55 Protonix - PO 40 mg DAILY JOSE F Administration Multivit/Folic Acid/Iron 1 tab 02/25/17 10:00 03/22/17 09:55 Vitamins (Sjr) - PO 1 tab DAILY JOSE F Administration Pseudoephedrine/Triprolidine 1 combo 02/24/17 13:23 Actifed - PO TID PRN NASAL CONGESTION Sertraline HCl 200 mg 03/20/17 22:00 03/22/17 21:20 Zoloft - PO 200 mg HS JOSE F Administration Thiamine HCl 100 mg 02/24/17 22:00 03/22/17 21:20 Vitamin B1 - PO 100 mg HS JOSE F Administration Tolnaftate 1 applic 03/20/17 22:00 03/22/17 21:25 Tinactin 1% Cream - TP Not Given BID JOSE F Current Side Effect: No Lab tests ordered: Yes Lab tests reviewed: Yes Provider note:: Patient will complete this program on 03/24/17. He has met his treatment goals and will continue to address his issues in outpatient treatment at [facility] at [address] [place] [address]. Told gag writer from his participation in this program, he has learned that he has to attend meetings and stay busy in order to have a shot at abstinence. He responded well to Zoloft 200 mg po HS and Remeron 15 mg po HS. Scripts for 30 days supply of medications will be electronically transmitted to [facility] at [address] [place] [address]. He is stable for discharge on 03/24/17 Total face to face time:: 35 Mental Status Exam - Mental Status Exam Alert and Oriented to: Time, Place, Person Cognitive Function: Fair Patient Appearance: Well Groomed Mood: Hopeful, Euthymic Affect: Appropriate Patient Behavior: Cooperative Speech Pattern: Clear Voice Loudness: Normal Thought Process: Intact, Goal Oriented Thought Disorder: Not Present Hallucinations: Denies Suicidal Ideation: Denies Homicidal Ideation: Denies Insight/Judgement: Fair Sleep: Fair Appetite: Fair Muscle strength/Tone: Normal Gait/Station: Normal Psychiatric Treatment Plan - Problem List (1) Alcohol dependence Current Visit: No (2) Nicotine dependence Current Visit: Yes (3) Anxiety disorder Current Visit: Yes (4) JESSICA (generalized anxiety disorder) Current Visit: Yes (5) Hypertension Current Visit: Yes (6) GERD (gastroesophageal reflux disease) Current Visit: Yes Initial treatment plan: Patient will be discharged tomorrow and referred to [facility] for outpatient treatment
[2017-03-23] MEDS: LISINOPRIL 20 MG TABLET (FP) PO SCH (09:43)
[2017-03-23] MEDS: IBUPROFEN 600 MG TABLET (FP) PO PRN (09:43)
[2017-03-23] MEDS: CYCLOBENZAPRINE HCL 10 MG TABLET (FP) PO PRN ×2 (09:43→21:22)
[2017-03-23] MEDS: PANTOPRAZOLE 40 MG TABLET (FP) PO SCH (09:43)
[2017-03-23] MEDS: PRENATAL VITAMINS W/ FOLIC ACID TABLET (FP) PO SCH (09:43)
[2017-03-23] MEDS: NICOTINE 14 MG/24 HOURS TOPICAL PATCH TD SCH (09:45)
[2017-03-23] MEDS: TOLNAFTATE 1% CREAM 15 GM TUBE TP SCH ×2 (09:45→21:24)
[2017-03-23] MEDS: METHYL SALICYLATE/MENTHOL OINT 30 GM TUBE TP SCH ×2 (09:45→21:24)
[2017-03-23] MEDS: THIAMINE HCL 100 MG TABLET (FP) PO SCH (21:22)
[2017-03-23] MEDS: SERTRALINE HCL 50 MG TABLET (FP) PO SCH (21:22)
[2017-03-23] MEDS: MIRTAZAPINE 15 MG TABLET (FP) PO SCH (21:22)
[2017-03-23] MEDS: diphenhydrAMINE HCL 50 MG CAPSULE PO PRN (21:22)
[2017-03-24 06:51] VITALS: BP 131/79; PULSE 94; TEMP 98.6
[2017-03-24] MEDS: PANTOPRAZOLE 40 MG TABLET (FP) PO SCH (09:31)
[2017-03-24] MEDS: PRENATAL VITAMINS W/ FOLIC ACID TABLET (FP) PO SCH (09:31)
[2017-03-24] MEDS: LISINOPRIL 20 MG TABLET (FP) PO SCH (09:31)
[2017-03-24] MEDS: METHYL SALICYLATE/MENTHOL OINT 30 GM TUBE TP SCH (09:32)
[2017-03-24] MEDS: NICOTINE 14 MG/24 HOURS TOPICAL PATCH TD SCH (09:32)
[2017-03-24] MEDS: TOLNAFTATE 1% CREAM 15 GM TUBE TP SCH (09:58)
== END 2017-03-24 10:05 | disposition home or self-care (01) | DRG 895 ==
LOC: YASAS 10:31 → Y3W 13:16
PROVIDERS: ADMIT Psychiatry & Neurology Psychiatry; ATTEND Psychiatry & Neurology Psychiatry
PROC: HZ42ZZZ Group Counseling for Substance Abuse Treatment, Cognitive-Behavioral (ICD-10-PCS; principal; 2017-03-24)
DX: F10.20 Alcohol dependence, uncomplicated (principal); F17.210 Nicotine dependence, cigarettes, uncomplicated; F41.1 Generalized anxiety disorder; F32.9 Major depressive disorder, single episode, unspecified; I10 Essential (primary) hypertension; K21.9 Gastro-esophageal reflux disease without esophagitis
CPT/HCPCS: 36415; 72050-TC; 80053; 81003; 81015; 85027; 86593; 93005; 93010

== ENCOUNTER 2018-04-26 16:13 | Inpatient (IN) | payer OTHER ==
[2018-04-26 18:42] VITALS: BMI 28.2
--- NOTE | 2018-04-26 21:52 | HP ---
CIWA Score - CIWA Score Nausea/Vomitin-Mild Nausea/No Vomiting Muscle Tremors: 4-Moderate,w/Arms Extend Anxiety: 4-Mod. Anxious/Guarded Agitation: 4-Moderately Restless Paroxysmal Sweats: 3 Orientation: 0-Oriented Tacttile Disturbances: 3-Moderate Itch/Numb/Burn Auditory Disturbances: 0-None Visual Disturbances: 0-None Headache: 3-Moderate CIWA-Ar Total Score: 22 Admission ROS [facility] - HPI Chief Complaint: c/o withdrawal sx's. seeking detox from alcohol Allergies/Adverse Reactions: Allergies Allergy/AdvReac Type Severity Reaction Status Date / Time No Known Allergies Allergy Verified 02/24/17 13:03 History of Present Illness: 52 Y.O. MALE WITH ALCOHOLISM HERE FOR DETOX. CLIENT IS KNOWN TO THIS PROGRAM. LAST HERE 1 YEAR AGO. HE IS REFERRED TO [facility] BY HIS [facility]. DENIES ANY SIGNIFICANT PERIOD OF CLEAN TIME, SEIZURES, AVH, SI/HI. UTOX + BZO. CLIENT REPORTS TAKING A PILL FROM A FRIEND. Exam Limitations: No Limitations - Ebola screening Have you traveled outside of the country in the last 21 days: No (N) Have you had contact with anyone from an Ebola affected area: No Have you been sick,other than usual withdrawal symptoms: No Do you have a fever: No - Review of Systems Constitutional: Chills, Loss of Appetite, Malaise, Night Sweats, Changes in sleep EENT: reports: No Symptoms Reported Respiratory: reports: No Symptoms reported Cardiac: reports: No Symptoms Reported GI: reports: Diarrhea, Nausea, Poor Appetite, Vomiting, Other (GERD) : reports: No Symptoms Reported Musculoskeletal: reports: Joint Pain Integumentary: reports: Rash (TO BOTH ARMS CHRONIC) Neuro: reports: No Symptoms reported Endocrine: reports: No Symptoms Reported Hematology: reports: No Symptoms Reported Psychiatric: reports: Anxious, Depressed Other Systems: Reviewed and Negative Patient History - Patient Medical History Hx Anemia: No Hx Asthma: No Hx Chronic Obstructive Pulmonary Disease (COPD): No Hx Cancer: No Hx Cardiac Disorders: No Hx Congestive Heart Failure: No Hx Hypertension: Yes (NON COMPLIANT WWITH MED. DOES NOT RECALL) Hx Hypercholesterolemia: No Hx Pacemaker: No HX Cerebrovascular Accident: No Hx Seizures: No Hx Diabetes: No Hx Gastrointestinal Disorders: Yes (GERD/PROTONIX) Hx Liver Disease: No Hx Genitourinary Disorders: No Hx Sexually Transmitted Disorders: No Hx Renal Disease (ESRD): No Hx Thyroid Disease: No Hx Human Immunodeficiency Virus (HIV): No Hx Hepatitis C: No Hx Depression: Yes Hx Suicide Attempt: No Hx Schizophrenia: No Other Medical History: ANXIETY/ PTSD - Patient Surgical History Past Surgical History: No Hx Neurologic Surgery: No Hx Cataract Extraction: No Hx Cardiac Surgery: No Hx Lung Surgery: No Hx Breast Surgery: No Hx Breast Biopsy: No Hx Abdominal Surgery: Yes Hx Appendectomy: No Hx Cholecystectomy: No Hx Genitourinary Surgery: No Hx Section: No Hx Orthopedic Surgery: Yes (right tight abd had a colonostomy bg for 2 years prior to closure ) Anesthesia Reaction: No - PPD History Previous Implant?: Yes Documented Results: Negative w/o proof Implanted On Prior [facility] Admission?: Yes Date: 02/26/17 Results: 0 MM PPD to be Administered?: Yes - Smoking Cessation Smoking history: Former smoker Have you smoked in the past 12 months: Yes Aproximately how many cigarettes per day: 3 Cigars Per Day: 0 Hx Chewing Tobacco Use: No Initiated information on smoking cessation: Yes 'Breaking Loose' booklet given: 04/26/18 - Substance & Tx. History Hx Alcohol Use: Yes Hx Substance Use: Yes Substance Use Type: Alcohol Hx Substance Use Treatment: Yes ([facility]) - Substances Abused Alcohol Route: Oral Frequency: Daily Amount used: Vodka 3 pints, Beer 2 x 24oz Age of first use: 13 Date of Last Use: 04/26/18 Family Disease History - Family Disease History Family Disease History: CA: Grandparent, Other: Father (alcohol,), Mother (alcohol,) Admission Physical Exam [facility] - Vital Signs Vital Signs: Vital Signs - 24 hr 04/26/18 18:39 Temperature 97.6 F Pulse Rate 103 H Respiratory 20 Rate Blood Pressure 159/98 - Physical General Appearance: Yes: Appropriately Dressed, Mild Distress, Alcohol on Breath , Obese, Tremorous (FELT), Anxious HEENTM: Yes: EOMI, Normocephalic, Normal Voice, DELANO, Pharynx Normal Respiratory: Yes: Chest Non-Tender, Lungs Clear, Normal Breath Sounds, No Respiratory Distress, No Accessory Muscle Use Neck: Yes: No masses,lesions,Nodules, Supple, Trachea in good position Breast: Yes: Breast Exam Deferred Cardiology: Yes: Regular Rhythm, S1, S2, Tachycardia Abdominal: Yes: Non Tender, Soft, Protuberent Genitourinary: Yes: Other (NO C/O) Back: Yes: Normal Inspection Musculoskeletal: Yes: full range of Motion, Gait Steady Extremities: Yes: Normal Range of Motion, Non-Tender, Tremors (FELT) Neurological: Yes: Fully Oriented, Alert, Motor Strength 5/5, Depressed Affect Integumentary: Yes: Dry, Warm Lymphatic: Yes: Within Normal Limits - Diagnostic (1) Alcohol dependence with uncomplicated withdrawal Current Visit: Yes Status: Acute (2) Depression Current Visit: Yes Status: Suspected (3) GERD (gastroesophageal reflux disease) Current Visit: Yes Status: Chronic Qualifiers: Esophagitis presence: without esophagitis Qualified Code(s): K21.9 - Gastro -esophageal reflux disease without esophagitis (4) Hypertension Current Visit: Yes Status: Chronic Qualifiers: Hypertension type: essential hypertension Qualified Code(s): I10 - Essential (primary) hypertension (5) Nicotine dependence Current Visit: Yes Status: Chronic Qualifiers: Nicotine product type: cigarettes Substance use status: uncomplicated Qualified Code(s): F17.210 - Nicotine dependence, cigarettes, uncomplicated Cleared for Admission [facility] - Detox or Rehab [facility] Level of Care: Medically Managed Detox Regimen/Protocol: Librium Claeared for Rehab Admission: No [facility] Breath Alcohol Content Breath Alcohol Content: 0.140 Urine Drug Screen - Results Drug Screen Negative: No Urine Drug Screen Results: BZO-Benzodiazepines
[2018-04-26] MEDS ORDERED: ACETAMINOPHEN 325 MG TABLET (FP) PO PRN (21:55)
[2018-04-26] MEDS ORDERED: MAGNESIUM CITRATE 300 ML BOTTLE PO PRN (21:55)
[2018-04-26] MEDS ORDERED: chlordiazePOXIDE HCL 25 MG CAPSULE PO PRN (21:55)
[2018-04-26] MEDS ORDERED: MENTHOL/PHENOL 1 EACH UD MM PRN (21:55)
[2018-04-26] MEDS ORDERED: P-EPHED 60MG/TRIPROLIDI 2.5MG TABLET PO PRN (21:55)
[2018-04-26] MEDS ORDERED: IBUPROFEN 400 MG TABLET (FP) PO PRN (21:55)
[2018-04-26] MEDS ORDERED: MAG HYDROX/AL HYDROX/SIMETH 30 ML UNIT-DOSE CUP PO PRN (21:55)
[2018-04-26] MEDS ORDERED: MAGNESIUM HYDROX 2400MG/30ML ORAL SUSPENSION 30 ML CUP PO PRN (21:55)
[2018-04-26] MEDS ORDERED: guaiFENesin/D-METHORPHAN HB 10 ML UNIT-DOSE CUPS PO PRN (21:55)
[2018-04-26] MEDS ORDERED: LOPERAMIDE HCL 2 MG CAPSULE PO PRN (21:55)
[2018-04-26] MEDS ORDERED: NICOTINE POLACRILEX 2 MG GUM BC PRN (21:55)
[2018-04-26] MEDS ORDERED: cloNIDine HCL 0.1 MG TABLET PO ONE (21:57)
[2018-04-26] MEDS ORDERED: HYDROCORTISONE 1% TOPICAL CREAM 30 GM TUBE TP PRN (22:01)
[2018-04-26] MEDS: THIAMINE HCL 100 MG TABLET (FP) PO SCH (23:02)
[2018-04-26] MEDS: MELATONIN 5 MG TABLETS PO PRN (23:04)
[2018-04-26] MEDS: chlordiazePOXIDE HCL 25 MG CAPSULE PO SCH (23:09)
[2018-04-27] MEDS: chlordiazePOXIDE HCL 25 MG CAPSULE PO SCH ×4 (05:10→22:14)
[2018-04-27] MEDS: LISINOPRIL 20 MG TABLET (FP) PO SCH (10:15)
[2018-04-27] MEDS: PRENATAL VITAMINS W/ FOLIC ACID TABLET (FP) PO SCH (10:15)
[2018-04-27] MEDS: PANTOPRAZOLE 40 MG TABLET (FP) PO SCH (10:15)
[2018-04-27] MEDS: NICOTINE 14 MG/24 HOURS TOPICAL PATCH TD SCH (10:17)
[2018-04-27 10:25] LABS: HEMATOCRIT 40.3 % (35.4-49); HEMOGLOBIN 13.6 GM/dL (11.7-16.9); MCH 29.6 pg (25.7-33.7); MCHC 33.6 g/dl (32.0-35.9); MEAN PLT VOLUME 8.2 fl (7.5-11.1); PLATELET COUNT 321 K/MM3 (134-434); RBC 4.58 M/mm3 (4.00-5.60); RDW 14.8 % (11.9-15.9); WHITE BLOOD COUNT 4.7 K/mm3 (4.0-10.0)
--- NOTE | 2018-04-27 10:42 | PN ---
S CIWA - CIWA Score Nausea/Vomitin-No Nausea/No Vomiting Muscle Tremors: 4-Moderate,w/Arms Extend Anxiety: 4-Mod. Anxious/Guarded Agitation: 4-Moderately Restless Paroxysmal Sweats: 1-Minimal Palms Moist Orientation: 0-Oriented Tacttile Disturbances: 0-None Auditory Disturbances: 0-None Visual Disturbances: 0-None Headache: 0-None Present CIWA-Ar Total Score: 13 BHS Progress Note (SOAP) Subjective: ANXIETY,SWEATS,TREMORS,INTERMITTENT SLEEP. Objective: 04/27/18 10:41 Vital Signs 04/27/18 04/27/18 04/27/18 03:30 06:06 06:30 Temperature 97.6 F Pulse Rate 100 H Respiratory 18 18 18 Rate Blood Pressure 120/75 04/27/18 09:19 Temperature 95.8 F L Pulse Rate 87 Respiratory 16 Rate Blood Pressure 126/77 Laboratory Tests 04/27/18 07:30 WBC 4.7 RBC 4.58 Hgb 13.6 Hct 40.3 MCV 88.0 MCH 29.6 MCHC 33.6 RDW 14.8 Plt Count 321 MPV 8.2 OTHER LABS PENDING Assessment: 04/27/18 10:41 WITHDRAWAL SX Plan: CONTINUE DETOX
[2018-04-27 10:49] LABS: CHLORIDE 101 mmol/L (98-107); SODIUM 141 mmol/L (136-145)
[2018-04-27 11:04] LABS: ALBUMIN 3.1 g/dl (3.4-5.0); ALK PHOS 95 U/L (45-117); ANION GAP 12 (8-16); BILIRUBIN,TOTAL 0.7 mg/dL (0.2-1.0); BLOOD UREA NITROGEN 8 mg/dL (7-18); CALCIUM 8.7 mg/dL (8.5-10.1); CO2 28 mmol/L (21-32); GLUCOSE,RANDOM 74 mg/dL (74-106); SGOT/AST 157 U/L (15-37); SGPT/ALT 89 U/L (12-78); TOT PROT 6.9 g/dl (6.4-8.2)
--- NOTE | 2018-04-27 13:16 | EKG ---
Test Reason : Blood Pressure : / mmHG Vent. Rate : 091 BPM Atrial Rate : 091 BPM P-R Int : 198 ms QRS Dur : 090 ms QT Int : 398 ms P-R-T Axes : 053 007 034 degrees QTc Int : 489 ms NORMAL SINUS RHYTHM POSSIBLE LEFT ATRIAL ENLARGEMENT PROLONGED QT ABNORMAL ECG WHEN COMPARED WITH ECG OF 24-FEB-2017 20:29, NO SIGNIFICANT CHANGE WAS FOUND Confirmed by Phu Allen MD ([id number]) on 04/27/2018 1:16:02 PM Referred By: Confirmed By:Phu Allen MD
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
[2018-04-27] MEDS: THIAMINE HCL 100 MG TABLET (FP) PO SCH (22:14)
[2018-04-27] MEDS: MIRTAZAPINE 15 MG TABLET (FP) PO SCH (22:14)
[2018-04-27] MEDS: SERTRALINE HCL 50 MG TABLET (FP) PO SCH (22:14)
[2018-04-28] MEDS: chlordiazePOXIDE HCL 25 MG CAPSULE PO SCH ×3 (05:07→18:13)
[2018-04-28] MEDS: PRENATAL VITAMINS W/ FOLIC ACID TABLET (FP) PO SCH (10:26)
[2018-04-28] MEDS: PANTOPRAZOLE 40 MG TABLET (FP) PO SCH (10:26)
[2018-04-28] MEDS: NICOTINE 14 MG/24 HOURS TOPICAL PATCH TD SCH (10:26)
[2018-04-28] MEDS: LISINOPRIL 20 MG TABLET (FP) PO SCH (10:26)
--- NOTE | 2018-04-28 11:36 | PN ---
S CIWA - CIWA Score Nausea/Vomitin-No Nausea/No Vomiting Muscle Tremors: 4-Moderate,w/Arms Extend Anxiety: 4-Mod. Anxious/Guarded Agitation: 3 Paroxysmal Sweats: 1-Minimal Palms Moist Orientation: 0-Oriented Tacttile Disturbances: 0-None Auditory Disturbances: 0-None Visual Disturbances: 0-None Headache: 0-None Present CIWA-Ar Total Score: 12 BHS Progress Note (SOAP) Subjective: PT C/O ANXIETY,TREMORS AND ANGRY-BUT DON'T KNOW WHY. WILL LIKE TO SE THE PSYCH. Objective: 04/28/18 11:33 Vital Signs 04/28/18 04/28/18 04/28/18 04:10 05:52 06:30 Temperature 97.1 F L Pulse Rate 86 Respiratory 18 18 18 Rate Blood Pressure 142/81 04/28/18 10:46 Temperature 96.3 F L Pulse Rate 68 Respiratory 18 Rate Blood Pressure 100/64 Laboratory Tests 04/27/18 04/27/18 04/27/18 07:30 07:30 07:30 WBC 4.7 RBC 4.58 Hgb 13.6 Hct 40.3 MCV 88.0 MCH 29.6 MCHC 33.6 RDW 14.8 Plt Count 321 MPV 8.2 Sodium 141 Potassium 4.0 Chloride 101 Carbon Dioxide 28 Anion Gap 12 BUN 8 Creatinine 1.0 Creat Clearance w eGFR > 60 Random Glucose 74 Calcium 8.7 Total Bilirubin 0.7 AST 157 H D ALT 89 H D Alkaline Phosphatase 95 Total Protein 6.9 Albumin 3.1 L RPR Titer Nonreactive LABS NOTED ELEVATED AST AND ALT Assessment: 04/28/18 11:33 WITHDRAWAL SX Plan: CONTINUE DETOX F/U WITH PSYCH CONSULT
--- NOTE | 2018-04-28 17:39 | PN ---
Psychiatric Progress Note Vital Signs: Vital Signs Period Temp Pulse Resp BP Sys/Wood Pulse Ox Last 24 Hr 96.3 F-99.2 F 68-94 18-18 91-142/62-81 Date of Session: 04/28/18 Chief Complaint:: 'I have anxiety." HPI: Pt. admitted to for alcohol dependence. ROS: hypertension, Gerd Current Medications: Active Medications Generic Name Dose Route Start Last Admin Trade Name Freq PRN Reason Stop Dose Admin Acetaminophen 650 mg 04/26/18 21:55 Tylenol - PO Q4H PRN FEVER Al Hydroxide/Mg Hydroxide 30 ml 04/26/18 21:55 Mylanta Oral Suspension - PO Q6H PRN DYSPEPSIA Chlordiazepoxide HCl 15 mg 04/28/18 23:00 Librium - PO 04/29/18 17:01 [id number] JOSE F Chlordiazepoxide HCl 25 mg 04/26/18 21:55 Librium - PO 04/29/18 21:54 Q4H PRN WITHDRAWAL(CONT SUBST) Chlordiazepoxide HCl 10 mg 04/29/18 23:00 Librium - PO 04/30/18 17:01 [id number] JOSE F Eucalyptus/Menthol/Phenol/Sorbitol 1 each 04/26/18 21:55 Cepastat Lozenge - MM Q4H PRN SORE THROAT Guaifenesin 10 ml 04/26/18 21:55 Robitussin Dm - PO Q6H PRN COUGH Hydrocortisone 1 applic 04/26/18 22:01 Hytone 1% Cream - TP QID PRN RASH/ PRURITIS Hydroxyzine Pamoate 50 mg 04/26/18 21:55 Vistaril - PO Q4H PRN AGITATION Ibuprofen 400 mg 04/26/18 21:55 Motrin - PO Q6H PRN PAIN LEVEL 4-6 Lisinopril 20 mg 04/27/18 10:00 04/28/18 10:26 Prinivil PO 20 mg DAILY JOSE F Administration Loperamide HCl 4 mg 04/26/18 21:55 Imodium - PO Q6H PRN DIARRHEA Magnesium Citrate 300 ml 04/26/18 21:55 Citroma - PO Q48H PRN CONSTIPATION Magnesium Hydroxide 30 ml 04/26/18 21:55 Milk Of Magnesia - PO DAILY PRN CONSTIPATION Melatonin 5 mg 04/26/18 22:00 04/26/18 23:04 Melatonin PO 5 mg HS PRN Administration INSOMNIA Mirtazapine 15 mg 04/27/18 22:00 04/27/18 22:14 Remeron - PO 15 mg HS JOSE F Administration Nicotine 14 mg 04/27/18 10:00 04/28/18 10:26 Nicoderm Patch - TD Not Given DAILY JOSE F Nicotine Polacrilex 2 mg 04/26/18 21:55 Nicorette Gum - BC Q2H PRN NICOTINE REPLACEMENT RX Pantoprazole Sodium 40 mg 04/27/18 10:00 04/28/18 10:26 Protonix - PO 40 mg DAILY JOSE F Administration Multivit/Folic Acid/Iron 1 tab 04/27/18 10:00 04/28/18 10:26 Vitamins (Sjr) - PO 1 tab DAILY JOSE F Administration Pseudoephedrine/Triprolidine 1 combo 04/26/18 21:55 Actifed - PO TID PRN NASAL CONGESTION Sertraline HCl 50 mg 04/27/18 22:00 04/27/18 22:14 Zoloft - PO 50 mg HS JOSE F Administration Thiamine HCl 100 mg 04/26/18 22:00 04/27/18 22:14 Vitamin B1 - PO 100 mg HS JOSE F Administration Medication(s) Change(s): No. Current Side Effect: No Lab tests ordered: No Lab tests reviewed: Yes Provider note:: Ad Compositor spoke to patient concerning his request for a psychiatric follow up. Pt. complaining of anxiety today. Stated the vistaril was not effective. Ad Compositor recommended patient to accept vistaril before anxiety worsens as oppose to asking for medication when his anxiety is at its peak. Pt. also encouraged to utilize his coping mechanisms. Pt. satisifed and receptive to feedback. Total face to face time:: 15 Mental Status Exam - Mental Status Exam Alert and Oriented to: Time, Place, Person Cognitive Function: Good Patient Appearance: Well Groomed Mood: Hopeful Affect: Mood Congruent Patient Behavior: Appropriate, Cooperative Speech Pattern: Clear, Appropriate Voice Loudness: Normal Thought Process: Intact, Goal Oriented Thought Disorder: Not Present Hallucinations: Denies Suicidal Ideation: Denies Homicidal Ideation: Denies Insight/Judgement: Poor Sleep: Fair Appetite: Fair Muscle strength/Tone: Normal Gait/Station: Normal Psychiatric Treatment Plan - Problem List (1) Alcohol dependence with uncomplicated withdrawal Current Visit: Yes (2) Nicotine dependence Current Visit: Yes Qualifiers: Nicotine product type: cigarettes Substance use status: in withdrawal Qualified Code(s): F17.213 - Nicotine dependence, cigarettes, with withdrawal (3) Anxiety disorder Current Visit: Yes
[2018-04-28] MEDS: hydrOXYzine PAMOATE 50 MG CAPSULE (FP) PO PRN (18:14)
[2018-04-28] MEDS: chlordiazePOXIDE 5 MG CAPSULE PO SCH (22:18)
[2018-04-28] MEDS: MIRTAZAPINE 15 MG TABLET (FP) PO SCH (22:18)
[2018-04-28] MEDS: THIAMINE HCL 100 MG TABLET (FP) PO SCH (22:18)
[2018-04-28] MEDS: SERTRALINE HCL 50 MG TABLET (FP) PO SCH (22:19)
[2018-04-29] MEDS: chlordiazePOXIDE 5 MG CAPSULE PO SCH ×3 (05:12→17:27)
[2018-04-29] MEDS: LISINOPRIL 20 MG TABLET (FP) PO SCH (10:41)
[2018-04-29] MEDS: PANTOPRAZOLE 40 MG TABLET (FP) PO SCH (10:41)
[2018-04-29] MEDS: PRENATAL VITAMINS W/ FOLIC ACID TABLET (FP) PO SCH (10:41)
[2018-04-29] MEDS: NICOTINE 14 MG/24 HOURS TOPICAL PATCH TD SCH (10:43)
--- NOTE | 2018-04-29 12:29 | PN ---
[facility] Progress Note (SOAP) Subjective: C/O ANXIETY, TREMORS,SWEATS,FATIGUE. Objective: 04/29/18 12:26 Vital Signs 04/29/18 04/29/18 04/29/18 06:16 06:30 11:11 Temperature 97.8 F 98.4 F Pulse Rate 81 92 H Respiratory 20 18 18 Rate Blood Pressure 132/84 133/86 Laboratory Tests 04/27/18 04/27/18 04/27/18 07:30 07:30 07:30 WBC 4.7 RBC 4.58 Hgb 13.6 Hct 40.3 MCV 88.0 MCH 29.6 MCHC 33.6 RDW 14.8 Plt Count 321 MPV 8.2 Sodium 141 Potassium 4.0 Chloride 101 Carbon Dioxide 28 Anion Gap 12 BUN 8 Creatinine 1.0 Creat Clearance w eGFR > 60 Random Glucose 74 Calcium 8.7 Total Bilirubin 0.7 AST 157 H D ALT 89 H D Alkaline Phosphatase 95 Total Protein 6.9 Albumin 3.1 L RPR Titer Nonreactive Assessment: 04/29/18 12:28 WITHDRAWAL SX ELEVATED LIVER ENZYMES Plan: CONTINUE DETOX INCREASE PO FLUIDS. REPEAT LIVER PROFILE TODAY.
[2018-04-29] MEDS: hydrOXYzine PAMOATE 50 MG CAPSULE (FP) PO PRN ×2 (17:30→22:30)
[2018-04-29] MEDS: chlordiazePOXIDE HCL 10 MG CAPSULE PO SCH (22:28)
[2018-04-29] MEDS: SERTRALINE HCL 50 MG TABLET (FP) PO SCH (22:28)
[2018-04-29] MEDS: MIRTAZAPINE 15 MG TABLET (FP) PO SCH (22:28)
[2018-04-29] MEDS: THIAMINE HCL 100 MG TABLET (FP) PO SCH (22:28)
[2018-04-30] MEDS: chlordiazePOXIDE HCL 10 MG CAPSULE PO SCH ×3 (05:43→17:33)
[2018-04-30] MEDS: hydrOXYzine PAMOATE 50 MG CAPSULE (FP) PO PRN ×4 (05:45→22:36)
[2018-04-30 10:16] LABS: INR 1.01 (0.83-1.09); PROTHROMBIN TIME (PATIENT) 11.4 SEC (9.7-13.0)
[2018-04-30 10:38] LABS: ALBUMIN 2.9 g/dl (3.4-5.0); ALK PHOS 102 U/L (45-117); BILIRUBIN,DIRECT < 0.2 mg/dL (0.0-0.2); BILIRUBIN,TOTAL 0.2 mg/dL (0.2-1.0); SGOT/AST 57 U/L (15-37); SGPT/ALT 60 U/L (12-78); TOT PROT 6.3 g/dl (6.4-8.2)
[2018-04-30] MEDS: NICOTINE 14 MG/24 HOURS TOPICAL PATCH TD SCH (10:40)
[2018-04-30] MEDS: LISINOPRIL 20 MG TABLET (FP) PO SCH (10:40)
[2018-04-30] MEDS: PANTOPRAZOLE 40 MG TABLET (FP) PO SCH (10:40)
[2018-04-30] MEDS: PRENATAL VITAMINS W/ FOLIC ACID TABLET (FP) PO SCH (10:40)
--- NOTE | 2018-04-30 12:03 | PN ---
[facility] Progress Note (SOAP) Subjective: ANXIETY,BODY ACHES,CHILLS, DRY MOUTH. Objective: 04/30/18 12:02 Vital Signs 04/30/18 04/30/18 06:18 09:12 Temperature 97.4 F L 98.2 F Pulse Rate 88 88 Respiratory 20 18 Rate Blood Pressure 134/86 144/89 Laboratory Tests 04/27/18 04/27/18 04/27/18 07:30 07:30 07:30 WBC 4.7 RBC 4.58 Hgb 13.6 Hct 40.3 MCV 88.0 MCH 29.6 MCHC 33.6 RDW 14.8 Plt Count 321 MPV 8.2 PT with INR INR Sodium 141 Potassium 4.0 Chloride 101 Carbon Dioxide 28 Anion Gap 12 BUN 8 Creatinine 1.0 Creat Clearance w eGFR > 60 Random Glucose 74 Calcium 8.7 Total Bilirubin 0.7 Direct Bilirubin AST 157 H D ALT 89 H D Alkaline Phosphatase 95 Total Protein 6.9 Albumin 3.1 L RPR Titer Nonreactive 04/30/18 04/30/18 07:00 07:00 WBC RBC Hgb Hct MCV MCH MCHC RDW Plt Count MPV PT with INR 11.40 INR 1.01 Sodium Potassium Chloride Carbon Dioxide Anion Gap BUN Creatinine Creat Clearance w eGFR Random Glucose Calcium Total Bilirubin 0.2 Direct Bilirubin < 0.2 AST 57 H D ALT 60 D Alkaline Phosphatase 102 Total Protein 6.3 L Albumin 2.9 L RPR Titer Assessment: 04/30/18 12:02 WITHDRAWAL SX Plan: CONTINUE DETOX INCREASE PO FLUIDS
[2018-04-30] MEDS: SERTRALINE HCL 50 MG TABLET (FP) PO SCH (22:32)
[2018-04-30] MEDS: THIAMINE HCL 100 MG TABLET (FP) PO SCH (22:32)
[2018-04-30] MEDS: MIRTAZAPINE 15 MG TABLET (FP) PO SCH (22:32)
[2018-04-30] MEDS: MELATONIN 5 MG TABLETS PO PRN (22:33)
[2018-05-01 09:33] VITALS: BP 113/73; PULSE 92; TEMP 97.2
--- NOTE | 2018-05-01 10:24 | PN ---
[facility] Progress Note Note: Psychiatry Attending's on-call note : Called by medical FLEET ADMINISTRATOR Hilario. To enter scripts for patient. Mr Gaffney is getting discharged today. Needs prescriptions for mirtazapine + sertraline. Chart reviewed. lidar technician Latonya's notes : appreciated. Medications confirmed.Scripts sent to : [facility] ([facility]). Remeron 15 mg po hs # 30 Zoloft 50 mg po daily # 30
[2018-05-01] MEDS: LISINOPRIL 20 MG TABLET (FP) PO SCH (11:03)
[2018-05-01] MEDS: PANTOPRAZOLE 40 MG TABLET (FP) PO SCH (11:03)
[2018-05-01] MEDS: PRENATAL VITAMINS W/ FOLIC ACID TABLET (FP) PO SCH (11:03)
[2018-05-01] MEDS: NICOTINE 14 MG/24 HOURS TOPICAL PATCH TD SCH (11:03)
--- NOTE | 2018-05-01 20:30 | PN ---
S Progress Note (SOAP) Subjective: Patient denies current Detox symptoms and reports that he feels well overall. Objective: PATIENT A & O X 3, OBSERVED AMBULATING ON UNIT. NO ACUTE DISTRESS. 05/01/18 20:28 Vital Signs Temperature 97.2 F L 05/01/18 09:32 Pulse Rate 92 H 05/01/18 09:32 Respiratory Rate 18 05/01/18 09:32 Blood Pressure 113/73 05/01/18 09:32 O2 Sat by Pulse Oximetry (%) Laboratory Tests 04/27/18 04/27/18 04/27/18 07:30 07:30 07:30 WBC 4.7 RBC 4.58 Hgb 13.6 Hct 40.3 MCV 88.0 MCH 29.6 MCHC 33.6 RDW 14.8 Plt Count 321 MPV 8.2 PT with INR INR Sodium 141 Potassium 4.0 Chloride 101 Carbon Dioxide 28 Anion Gap 12 BUN 8 Creatinine 1.0 Creat Clearance w eGFR > 60 Random Glucose 74 Calcium 8.7 Total Bilirubin 0.7 Direct Bilirubin AST 157 H D ALT 89 H D Alkaline Phosphatase 95 Total Protein 6.9 Albumin 3.1 L RPR Titer Nonreactive 04/30/18 04/30/18 07:00 07:00 WBC RBC Hgb Hct MCV MCH MCHC RDW Plt Count MPV PT with INR 11.40 INR 1.01 Sodium Potassium Chloride Carbon Dioxide Anion Gap BUN Creatinine Creat Clearance w eGFR Random Glucose Calcium Total Bilirubin 0.2 Direct Bilirubin < 0.2 AST 57 H D ALT 60 D Alkaline Phosphatase 102 Total Protein 6.3 L Albumin 2.9 L RPR Titer LABS NOTED. Assessment: 05/01/18 20:29 COMPLETION OF DETOX REGIMEN. Plan: PATIENT SCHEDULED FOR DISCHARGE FROM DETOX UNIT TODAY.
--- NOTE | 2018-05-01 20:36 | DS ---
[facility] Detox Discharge Summary Admission Date: 04/26/18 Discharge Date: 05/01/18 - History Present History: Alcohol Dependence Additional Comments: NO BEDS ARE AVAILABLE AT [facility] PATIENT WILL RETURN TO HIS LONGTERM IN [facility] FOR THE TIME BEING AND THEN [facility]2018 TO INQUIRE ABOUT POSSIBLE REHAB ADMISSION AT THAT TIME. PATIENT WAS DISCHARGED FROM DETOX UNIT IN STABLE MEDICAL CONDITION. Pertinent Past History: History of Depression, PTSD, HTN, G.E.R.D., Anxiety. - Physical Exam Results Vital Signs: Vital Signs Temperature 97.2 F L 05/01/18 09:32 Pulse Rate 92 H 05/01/18 09:32 Respiratory Rate 18 05/01/18 09:32 Blood Pressure 113/73 05/01/18 09:32 O2 Sat by Pulse Oximetry (%) Pertinent Admission Physical Exam Findings: WITHDRAWAL SYMPTOMS. Laboratory Tests 04/27/18 04/27/18 04/27/18 07:30 07:30 07:30 WBC 4.7 RBC 4.58 Hgb 13.6 Hct 40.3 MCV 88.0 MCH 29.6 MCHC 33.6 RDW 14.8 Plt Count 321 MPV 8.2 PT with INR INR Sodium 141 Potassium 4.0 Chloride 101 Carbon Dioxide 28 Anion Gap 12 BUN 8 Creatinine 1.0 Creat Clearance w eGFR > 60 Random Glucose 74 Calcium 8.7 Total Bilirubin 0.7 Direct Bilirubin AST 157 H D ALT 89 H D Alkaline Phosphatase 95 Total Protein 6.9 Albumin 3.1 L RPR Titer Nonreactive 04/30/18 04/30/18 07:00 07:00 WBC RBC Hgb Hct MCV MCH MCHC RDW Plt Count MPV PT with INR 11.40 INR 1.01 Sodium Potassium Chloride Carbon Dioxide Anion Gap BUN Creatinine Creat Clearance w eGFR Random Glucose Calcium Total Bilirubin 0.2 Direct Bilirubin < 0.2 AST 57 H D ALT 60 D Alkaline Phosphatase 102 Total Protein 6.3 L Albumin 2.9 L RPR Titer LABS NOTED. - Treatment Hospital Course: Detox Protocol Followed, Detoxed Safely, Responded well, Discharged Condition Good, Rehab Referral Accepted Patient has Accept[facility] ([facility] . - Medication Discharge Medications: Ambulatory Orders Folic Acid - 1 mg PO DAILY 02/24/17 Multivitamin [Poly-Vitamin] 1 each PO DAILY 02/24/17 Thiamine Mononitrate [Vitamin B-1] 100 mg PO DAILY 02/24/17 traZODone HCL [Desyrel -] 150 mg PO HS 02/24/17 Mirtazapine [Remeron -] 15 mg PO HS #30 tablet 03/23/17 Pantoprazole Sodium [Protonix -] 40 mg PO DAILY #30 tab 03/23/17 Sertraline HCl [Zoloft] 200 mg PO HS #60 tablet 03/23/17 Lisinopril [Prinivil] 20 mg PO DAILY 30 Days #30 tab 05/01/18 Mirtazapine [Remeron -] 15 mg PO HS #30 tablet 05/01/18 Quetiapine Fumarate [Seroquel -] 50 mg PO HS #30 tablet 05/01/18 - Diagnosis (1) Alcohol dependence with uncomplicated withdrawal Status: Acute (2) Nicotine dependence Status: Acute Qualifiers: Nicotine product type: cigarettes Substance use status: in withdrawal Qualified Code(s): F17.213 - Nicotine dependence, cigarettes, with withdrawal (3) GERD (gastroesophageal reflux disease) Status: Chronic Qualifiers: Esophagitis presence: esophagitis presence not specified Qualified Code(s) : K21.9 - Gastro-esophageal reflux disease without esophagitis (4) Hypertension Status: Chronic Qualifiers: Hypertension type: essential hypertension Qualified Code(s): I10 - Essential (primary) hypertension (5) Anxiety disorder Status: Chronic Qualifiers: Anxiety disorder type: unspecified anxiety disorder Qualified Code(s): F41.9 - Anxiety disorder, unspecified (6) Depression Status: Suspected Qualifiers: Depression Type: unspecified Qualified Code(s): F32.9 - Major depressive disorder, single episode, unspecified - AMA Did Patient Leave Against Medical Advice: No
== END 2018-05-01 11:11 | disposition home or self-care (01) | DRG 897 ==
LOC: YASAS 16:13 → Y3N 22:11
PROVIDERS: ADMIT Surgery; ATTEND Surgery
PROC: HZ2ZZZZ Detoxification Services for Substance Abuse Treatment (ICD-10-PCS; principal; 2018-04-26)
DX: F19.230 Other psychoactive substance dependence with withdrawal, uncomplicated (principal); F10.230 Alcohol dependence with withdrawal, uncomplicated; F17.210 Nicotine dependence, cigarettes, uncomplicated; F41.9 Anxiety disorder, unspecified; F32.9 Major depressive disorder, single episode, unspecified; I10 Essential (primary) hypertension; K21.9 Gastro-esophageal reflux disease without esophagitis; R94.5 Abnormal results of liver function studies; R74.0 Nonspecific elevation of levels of transaminase and lactic acid dehydrogenase [LDH]; R00.0 Tachycardia, unspecified; E66.9 Obesity, unspecified; Z68.28 Body mass index [BMI] 28.0-28.9, adult; Z91.14 Patient's other noncompliance with medication regimen; Z87.891 Personal history of nicotine dependence
CPT/HCPCS: 36415; 80053; 80076; 85027; 85610; 86593; 93005; 93010; J0735